=== PATIENT | female | born 1990 | race Hispanic/Latino ===

== ENCOUNTER 2019-04-20 22:14 | Day surgery (SDC) | payer OTHER ==
[2019-04-20 22:56] VITALS: BMI 29.1
[2019-04-20 23:03] VITALS: BP 109/75; TEMP 98.5
[2019-04-20 23:26] LABS: Amnisure Test No Membranes Rupture (No Rupture)
[2019-04-20 23:27] LABS: Amnisure Internal Control QC ACCEPTABLE (ACCEPTABLE)
[2019-04-20] MEDS ORDERED: hydrALAZINE 20 MG/ML VIAL SLOW IVP PRN (23:35)
--- NOTE | 2019-04-20 23:52 | PDOC.FPROB ---
FMR OB H&P: HPI - History of Present Illness Chief Complaint: LOF Indentification: 28 yo @ 30.3 weeks by LMP c/w 18wk sono History of Present Illness: 28yo @ 30.3 by LMP c/w 18wk sono presents for leakage of fluid. Pt states that at approximately 1730 this afternoon she had leakage of fluid with sneezing x2. After sneezing she noticed her underwear were wet. Changed, and has since been completely dry. Unsure color of fluid as wearing dark-colored underwear. No vaginal bleeding, changes in vaginal discharge. No recent intercourse, no new partners since , no history of STD's, no dysuria, frequency, urgency, no vaginal itching or burning. Endorses lower back pain rated 3/10, but no regular contractions. Endorses good movement. 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 - Surgical History Sx History: Primary 2016 - Social History Social History: No smoking, alcohol or illicit drug use - Family History Family History: Negative FMR OB H&P: Medications - Current Home Medications: Medication Instructions Recorded Confirmed Type Pnv No.95/Ferrous Fum/Folic AC 1 tab PO DAILY 04/20/19 04/20/19 History [ Vitamin Tablet] Allergies/Adverse Reactions: Allergies Allergy/AdvReac Type Severity Reaction Status Date / Time No Known Allergies Allergy Verified 04/20/19 22:51 FMR OB H&P: ROS - Review of Systems General: denies: fever/chills, weight/appetite/sleep changes, night sweats, recent trauma Eyes: denies: vision changes, double vision ENT: denies: nasal congestion, rhinorrhea, sore throat Cardiovascular: denies: chest pain, palpitation, edema Respiratory: denies: cough, congestion, shortness of breath Gastrointestinal: denies: abdominal pain, indigestion, bloating, cramping, nausea, vomiting, diarrhea, constipation Genitourinary (Female): reports: incontinence, other (leakage of fluid). denies : dysuria, hematuria, polyuria, hesitancy, vaginal discharge, vaginal pain, vaginal bleeding, contractions Musculoskeletal: reports: pain (back pain with ) Neurologic: denies: numbness, syncope Integumentary: denies: rash FMR OB H&P: Vital Signs - Maternal Vital signs: Vital Signs - First Documented Temp Pulse Resp BP Pulse Ox 98.5 F 78 16 109/75 98 04/20/19 22:50 04/20/19 22:50 04/20/19 22:50 04/20/19 22:50 04/20/19 22:50 - Heart Tones Baseline: 140 Variability: moderate Acceleration: present Deceleration: absent [place] contractions every: none FMR OB H&P: Physical Exam - Physical Exam General: NAD, awake, alert and oriented HEENT: PERRLA, EOMI, MMM, grossly normal vision, grossly normal hearing Neck: supple, trachea midline Heart: RRR, normal S1/S2, no murmurs/rubs/gallops, pulses present, no edema General: CTAB, no respiratory distress, good air movement, no rales/rhonchi, no wheezing Abdomen: soft, gravid, non-tender, bowel sound present Neurological: no focal deficit Skin: no rash - Pelvic Exam Vulva: normal hair distribution, no lesions, no discharge, no blood Deviation from normal: minimal thick, white discharge from cervix, no foul smell SVE: Cervical visualized, no pooling of fluid, no LOF with cough. FMR OB H&P: Results - Labs Lab results: Laboratory Results - last 24 hr 04/20/19 23:08 Amnio Swab Test No Membranes Rupture FMR OB H&P: A/P - Problem List (1) Third trimester at less than 36 weeks Status: Acute Code(s): Z34.93 - ENCNTR FOR SUPRVSN OF NORMAL PREG, UNSP, THIRD TRIMESTER Disposition: 28yo @ 30.3 by LMP c/w 18wk sono presents for leakage of fluid. #Leakage of fluid, likely incontinence - @ 30.3 by LMP c/w 18wk sono. Uncomplicated thus far. - 2 episodes with sneezing, since resolved with no continuation of leakage of fluid - Spec exam visualized cervix with no pooling of fluid and no LOF with coughing - Small amount of thick, white discharge, VP3 obtained - will notify of results - Amnisure negative - monitoring for 20 min - Reactive with accels, no deccels, moderate variability, no contractions, baseline 140 - History and exam c/w incontinence. Will obtain UA to assess for UTI, will treat if necessary - Pt safe for discharge. Findings and plan discussed with pt at bedside. Return precautions including continued loss of fluid, vaginal discharge or bleeding, or no movement given. Pt voiced agreement and understanding of discharge plan. Will f/u with PNC as previously scheduled for routine care. Discussion: Date/Time: 04/20/19 2350 This H&P was discussed with [Tonya] who agree with the above documentation and plan. Addendum - Attending - Attending Attestation Date/Time: 04/23/19 1000 I personally evaluated the patient and discussed the management with Dr. Gar I agree with the History, Examination, Assessment and Plan documented above with any addition or exceptions noted below. vital signs 109/75 16 78 98.5 98% I personally discussed the finding and results with the pt and. She was given labor precautions
[2019-04-21 00:14] LABS: Bilirubin Negative (Negative); Blood, Urine Negative (Negative); Clarity Clear (Clear); Glucose, Urine (Dipstick) Normal (Negative); Leukocyte Negative Leu/uL (Negative); Nitrite Negative (Negative); Protein, Urine (Dipstick) Negative (Neg-Trace); RBC/HPF 0-3 HPF (0-3); Squamous Epithelial 0-3 HPF (0-3); Urobilinogen Normal mg/dL (Less than 2); WBC/HPF 0-3 HPF (0-3)
[2019-04-21 00:18] LABS: Bacteria/HPF 1+ HPF (None Seen)
[2019-04-21 00:19] LABS: Urine Culture Reflex Yes Yes
[2019-04-21] MEDS ORDERED: FLU VACC QS2019-20(6MOS UP)/PF 60 MCG/0.5 ML SYRINGE IM ONE (09:00)
== END 2019-04-21 01:00 | disposition home or self-care (01) ==
LOC: L&D/OP 22:14
PROVIDERS: ATTEND Obstetrics & Gynecology
DX: O99.89 Other specified diseases and conditions complicating pregnancy, childbirth and the puerperium (principal); N89.8 Other specified noninflammatory disorders of vagina; Z3A.30 30 weeks gestation of pregnancy
CPT/HCPCS: 81001; 84112; 87086; 87480; 87510; 87660; 99285

== ENCOUNTER 2019-06-17 17:12 | Day surgery (SDC) | payer OTHER ==
[2019-06-17 17:53] VITALS: BMI 32.3
[2019-06-17] MEDS ORDERED: hydrALAZINE 20 MG/ML VIAL SLOW IVP PRN (18:06)
--- NOTE | 2019-06-17 18:22 | PDOC.FPROB ---
FMR OB H&P: HPI - History of Present Illness Chief Complaint: leakage of fluid Indentification: 28 yo @ 38.5 weeks by LMP c/w 18wk almao (LAVELL 06/26/2019 ) History of Present Illness: Jennifer presents for leakage of fluid. She states that at 11:30 this AM she stood up and felt fluid, she went to the bathroom and her underwear and pants were wet. She is unsure color of fluid as wearing dark-colored underwear. She denies any further leakage of fluid today. She notes that 2 days ago she had a similar experience, but it was a much smaller amount. She has a history of a primary emergent for prolapsed cord with a vertical skin incision and now has a hypertrophic scar. She states that the incision on her uterus is also vertical, however in our records it is unclear. She denies recent intercourse, no new partners since , no history of STD's, no dysuria, frequency, urgency, no vaginal itching or burning, denies contractions, vaginal bleeding or decreased movement. Primary Care Physician: YASMANI Byrne FMR OB H&P: Current - Care : 2 Para: 1001 Gestational age: 38.5 Due date: 06/26/2019 Dating Criteria: LMP c/w 18wk sono - OB Labs Blood type: O RH: positive Antibody Screen: negative HIV: negative RPR: negative HepBsAg: negative Rubella: immune Quad screen: negative Urine drug screen: not done Gonorrhea: negative Chlamydia: negative GBS: unknown FMR OB H&P: History - Past Medical History PMH: None - OB History OB History: H/o stat primary 2/2 cord prolapse. 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 - Family History Family History: Negative FMR OB H&P: Medications - Current Home Medications: Medication Instructions Recorded Confirmed Type Pnv No.95/Ferrous Fum/Folic AC 1 tab PO DAILY 04/20/19 06/17/19 History [ Vitamin Tablet] Allergies/Adverse Reactions: Allergies Allergy/AdvReac Type Severity Reaction Status Date / Time No Known Allergies Allergy Verified 06/17/19 17:52 FMR OB H&P: ROS - Review of Systems General: denies: fever/chills, weight/appetite/sleep changes, night sweats, fatigue Eyes: denies: eye pain, vision changes ENT: denies: nasal congestion, rhinorrhea, frequent nose bleed, sinus pain/ pressure, sore throat Cardiovascular: denies: chest pain, palpitation, edema Gastrointestinal: denies: abdominal pain, cramping, nausea, vomiting, diarrhea, constipation Genitourinary (Female): denies: dysuria, hematuria, polyuria Musculoskeletal: denies: pain, stiffness, tenderness Neurologic: denies: numbness, syncope, seizures, weakness Integumentary: denies: itching, rash FMR OB H&P: Vital Signs - Maternal Vital signs: VSS, WNL. BP <140/90, afebrile - Heart Tones Baseline: 140 Variability: moderate Acceleration: present Deceleration: absent Category: category 1 [place] contractions every: none FMR OB H&P: Physical Exam - Physical Exam General: NAD, awake, alert and oriented HEENT: normocephalic and atraumatic, PERRLA, EOMI, MMM, conjunctiva clear, grossly normal vision, grossly normal hearing Neck: supple, FROM Breast: symmetric Heart: RRR, normal S1/S2, no murmurs/rubs/gallops General: CTAB, no respiratory distress, good air movement Abdomen: soft, gravid, non-tender Musculoskeletal: normal gait and station, pulses present Neurological: cranial nerves II through XII intact Skin: no rash, good tugor Lymphatic: no unusual bruising or bleeding, no purpura, no petechia Psychiatric: intact recent and remote memory, good judgement and insight - Pelvic Exam Cervix: no masses, no lesions, no blood FMR OB H&P: Results - Labs Lab results: Laboratory Tests 06/17/19 18:28 Amnio Swab Test No Membranes Rupture FMR OB H&P: A/P - Problem List (1) Term Status: Acute Code(s): Z34.90 - ENCNTR FOR SUPRVSN OF NORMAL , UNSP, UNSP TRIMESTER Disposition: Stable, D/c home with labor precautions. Scheduled repeat 06/20/2019. Discussion: Date/Time: 06/17/19 182 Term , complains of leakage of fluid - @ 38.5 by LMP c/w 18wk sono. Uncomplicated thus far. - Spec exam visualized cervix with no pooling of fluid and no LOF with coughing - Small amount of thick, white discharge, VP3 obtained - will notify of results - Amnisure negative - monitoring for 20 min - Reactive with accels, no deccels, moderate variability, no contractions, baseline 140 - History and exam c/w incontinence vs discharge. - Pt safe for discharge. Findings and plan discussed with pt at bedside. Return precautions including continued loss of fluid, vaginal discharge or bleeding, or no movement given. Pt voiced agreement and understanding of discharge plan. Will f/u with PNC as previously scheduled for routine care. This H&P was discussed with Drs. Ornelas and Ghassan who agree with the above documentation and plan. Signature: -Jose PGY1 Addendum - Attending - Attending Attestation Date/Time: 06/18/19 8950 I personally evaluated the patient and discussed the management with Drs. Oconnor and Gayathri. I agree with the History, Examination, Assessment and Plan documented above.
[2019-06-17 18:46] LABS: Amnisure Internal Control QC ACCEPTABLE (ACCEPTABLE); Amnisure Test No Membranes Rupture (No Rupture)
[2019-06-18] MEDS ORDERED: FLU VACC QS2019-20(6MOS UP)/PF 60 MCG/0.5 ML SYRINGE IM ONE (09:00)
== END 2019-06-17 19:20 | disposition home or self-care (01) ==
LOC: L&D/OP 17:12
PROVIDERS: ATTEND Obstetrics & Gynecology
DX: O99.89 Other specified diseases and conditions complicating pregnancy, childbirth and the puerperium (principal); N89.8 Other specified noninflammatory disorders of vagina; O34.219 Maternal care for unspecified type scar from previous cesarean delivery; Z3A.38 38 weeks gestation of pregnancy
CPT/HCPCS: 84112; 87480; 87510; 87660; 99283

== ENCOUNTER 2019-06-20 11:17 | Inpatient (IN) | payer MEDICAID, OTHER, SELFPAY ==
[~2019-06-20 11:17] MED LIST: Acetaminophen 500 MG TAB PO PRN; Bicitra 30 ML UDCUP PO SCH; Butorphanol Tartrate 1 MG/ML VIAL SLOW IVP PRN; Docusate 100 MG CAP PO PRN; Ondansetron PF 4 MG/2 ML Vial IVP PRN; Promethazine HCl 25 MG/ML VIAL IM PRN; hydrALAZINE 20 MG/ML VIAL SLOW IVP PRN
[2019-06-20] MEDS ORDERED: CEFAZOLIN 2 GM in Premix Bag 1 BAG IVPB SCH (11:30)
[2019-06-20] MEDS ORDERED: Oxytocin 10 UNITS/ML VIAL ONE ×2 (11:33→13:16)
[2019-06-20] MEDS ORDERED: ePHEDrine/0.9% NaCl/PF SYRINGE 50 mg/10 ml ONE (11:33)
[2019-06-20] MEDS ORDERED: Ondansetron PF 4 MG/2 ML Vial ONE (11:33)
[2019-06-20 11:50] VITALS: BMI 33.8
[2019-06-20 11:56] LABS: Hemoglobin 13.1 g/dL (12.0-16.0); Mean Corpuscular HGB CONC 35.6 g/dL (32.0-36.0); Mean Corpuscular Hemoglobin 32.2 pg (27.0-31.0); Mean Corpuscular Volume 90.5 fL (78.0-98.0); Mean Platelet Volume 7.6 fL (7.4-10.4); Platelet Count 291 thou/uL (130-400); RBC Distribution Width 12.9 % (11.5-14.5); Red Blood Cell (RBC) Count 4.06 mill/uL (4.20-5.40); White Blood Cell (WBC) Count 9.1 thou/uL (4.8-10.8)
--- NOTE | 2019-06-20 12:00 | PDOC.FPROB ---
FMR OB H&P: HPI - History of Present Illness Chief Complaint: Repeat CS History of Present Illness: 28 yo @ 39.2 presents for repeat CS with scare revision. Pt had primary vertical skin and LT hysterotomy for stat section initial 2/2 cord prolapse. Reports pos movement. No CP, SOB, swelling. No vag bleeding DC or LOF. Primary Care Physician: Fide FMR OB H&P: Current - Care : 2 Para: 1001 Gestational age: 39.1 Due date: 06/26/2019 Dating Criteria: LMP 18 week sono Total weight gain: 40 LBS Course/Complications: None - OB Labs Blood type: O RH: positive Antibody Screen: negative HIV: negative RPR: negative HepBsAg: negative Rubella: immune Quad screen: unknown Urine drug screen: not done Gonorrhea: negative Chlamydia: negative 3 hour GTT: 73,150,101 FMR OB H&P: History - Past Medical History PMH: None - OB History OB History: Primary CS for cord prolapse - Surgical History Sx History: 1 prior CS - Social History Social History: No alcohol tobacco or drug use - Family History Family History: None FMR OB H&P: Medications - Current Home Medications: Medication Instructions Recorded Confirmed Type Pnv No.95/Ferrous Fum/Folic AC 1 tab PO DAILY 04/20/19 06/20/19 History [ Vitamin Tablet] guaiFENesin/Dextromethorphan 118 ml PO ONE PRN 06/20/19 06/20/19 History [Adult Robitussin Peak Cold Liquid] Allergies/Adverse Reactions: Allergies Allergy/AdvReac Type Severity Reaction Status Date / Time No Known Allergies Allergy Verified 06/17/19 17:52 FMR OB H&P: ROS - Review of Systems General: denies: fever/chills, night sweats Eyes: denies: vision changes ENT: reports: nasal congestion. denies: trouble with swallowing Cardiovascular: denies: chest pain Respiratory: reports: cough. denies: congestion, shortness of breath, exercise intolerance Gastrointestinal: denies: abdominal pain, bloating, cramping, nausea, vomiting, diarrhea, constipation Genitourinary (Female): denies: dysuria Neurologic: denies: numbness, weakness Integumentary: denies: itching, rash FMR OB H&P: Vital Signs - Heart Tones Baseline: 140 Variability: moderate Acceleration: present Deceleration: absent Category: category 1 [place] contractions every: None FMR OB H&P: Physical Exam - Physical Exam General: NAD, awake, alert and oriented HEENT: normocephalic and atraumatic, PERRLA, EOMI, MMM Neck: trachea midline Heart: RRR, normal S1/S2, no edema General: CTAB, no respiratory distress, good air movement, no rales/rhonchi, no wheezing Abdomen: soft, gravid, non-tender Musculoskeletal: FROM in all four extremities Neurological: no focal deficit Skin: no rash Deviation from normal: hypertrophic midline scar from inferior margin of umbilicus to pubic symph Lymphatic: no unusual bruising or bleeding Psychiatric: good judgement and insight, normal mood and affect - Pelvic Exam Estimated Weight: 7 lbs FMR OB H&P: Results - Labs Lab results: Laboratory Results - last 24 hr 06/20/19 11:47 WBC 9.1 RBC 4.06 L Hgb 13.1 Hct 36.8 MCV 90.5 MCH 32.2 H MCHC 35.6 RDW 12.9 Plt Count 291 MPV 7.6 FMR OB H&P: A/P - Problem List (1) Encounter for maternal care for scar from repeat delivery Current Visit: Yes Status: Acute Code(s): O34.219 - MATERNAL CARE FOR UNSP TYPE SCAR FROM PREVIOUS DEL (2) Term Current Visit: No Status: Acute Code(s): Z34.90 - ENCNTR FOR SUPRVSN OF NORMAL , UNSP, UNSP TRIMESTER Discussion: Date/Time: 06/20/19 9444 This H&P was discussed with Dr. Melton who agree with the above documentation and plan. 28 yo @ 39.1 presents for repeat section. 1) Term - plan for repeat CS - risks benefits alternatives explained - labs pending 2) Hypertrophic scar: - operative scar revision - consider abx post op Dispo: stable, admitted for repeat LTCS with vertical skin incision and scar revision. To OR for delivery. Addendum - Attending - Attending Attestation Date/Time: 06/20/19 1032 I personally evaluated the patient and discussed the management with Dr. Byrne I agree with the History, Examination, Assessment and Plan documented above with any addition or exceptions noted below. rLTCS with incision revision. R/B/A discussed with patient. elected to proceed.
[2019-06-20] MEDS: Lactated Ringer's 1,000 ML IV SCH ×3 (12:04→20:01)
[2019-06-20] MEDS ORDERED: Fentanyl 100 MCG/2 ML VIAL ONE (12:15)
[2019-06-20] MEDS ORDERED: MORPHINE 5 MG/10 ML PF VIAL ONE (12:15)
[2019-06-20] MEDS ORDERED: Ketorolac Tromethamine 30 MG/ML VIAL ONE (12:34)
[2019-06-20 12:45] LABS: HBSAg Index 0.33 S/CO (0-0.99); Hep B Surf Ag Non-Reactive S/CO (NonReactive); Syphilis Antibody Nonreactive (Nonreactive); Syphilis Antibody Index 0.04 S/CO (<1.00 Non-Reactive)
[2019-06-20] MEDS ORDERED: diphenhydrAMINE 50 MG/ML VIAL IVP PRN (13:55)
[2019-06-20] MEDS ORDERED: L&D-Morphine 4 MG/ML VIAL SLOW IVP PRN (13:55)
[2019-06-20] MEDS ORDERED: Promethazine HCl 25 MG SUPP PR PRN (13:55)
[2019-06-20] MEDS ORDERED: Meperidine HCl/PF 25 MG/ML VIAL SLOW IVP PRN (13:55)
[2019-06-20] MEDS ORDERED: Ondansetron PF 4 MG/2 ML Vial IVP PRN ×2 (13:55→16:02)
[2019-06-20] MEDS ORDERED: Promethazine HCl 25 MG/ML VIAL IM PRN (13:55)
[2019-06-20] MEDS ORDERED: HYDROmorphone 2 MG/ML VIAL SLOW IVP PRN (13:55)
[2019-06-20] MEDS ORDERED: Ondansetron HCl/PF 4 MG/2 ML Vial IVP PRN (13:55)
[2019-06-20] MEDS ORDERED: Naloxone HCl 0.4 mg/ml Vial IV PRN (13:55)
[2019-06-20] MEDS ORDERED: Naloxone HCl 0.4 mg/ml Vial IVP PRN ×2 (13:55)
[2019-06-20] MEDS ORDERED: Communication Order-Pharmacy FS SCH (14:00)
[2019-06-20] MEDS ORDERED: Lanolin Ointment 7 GM TUBE TOP PRN (16:02)
[2019-06-20] MEDS ORDERED: Milk Of Magnesia 30 ML UDCUP PO PRN (16:02)
[2019-06-20] MEDS ORDERED: hydrALAZINE 20 MG/ML VIAL SLOW IVP PRN (16:02)
[2019-06-20] MEDS ORDERED: Acetaminophen 325 MG TAB PO PRN (16:02)
[2019-06-20] MEDS ORDERED: Docusate 100 MG CAP PO PRN (16:02)
--- NOTE | 2019-06-20 17:29 | OP ---
DATE OF PROCEDURE: 06/20/2019 LOCATION: [place], [place]. REPORT TYPE: procedure note. RESIDENT SURGEON: Cullen Byrne DO NATIONAL ACCOUNT MANAGER SURGEON: Sari Granados MD PROCEDURES PROCEDURE: Repeat low-transverse section with vertical skin incision and hypertrophic scar revision. PREOPERATIVE DIAGNOSES: 1. Term intrauterine . 2. Previous with vertical skin incision, a low transverse hysterotomy. 3. Hypertrophic scar. POSTOPERATIVE DIAGNOSIS: 1. Term intrauterine delivered. 2. Previous with vertical skin incision, a low transverse hysterotomy. 3. Hypertrophic scar, revised. ANESTHESIA: Spinal. INDICATIONS: The patient is a 28-year-old, G2, P1-0-0-1 now P2-0-0-2 female at 39 and 1 weeks dated by LMP consistent with 18.1 sono, who presents for repeat scheduled section with hypertrophic scar revision. DESCRIPTION OF PROCEDURE: After risks, benefits, and alternatives were explained to the patient, she gave informed consent. Preoperative antibiotics included Ancef 2 g IV. Additionally, the patient used Hibiclens bath prior to arrival. The patient was taken to the operating room and spinal anesthesia was initiated. She was placed in the supine position with a left tilt and prepped and draped in the usual sterile fashion. A vertical skin incision was made from inferior to the umbilicus to the superior aspect of the mons pubis in elliptical shape, encompassing the prior hypertrophic scar/keloid and this tissue was then removed. This incision was then carried down to the level of fascia, which was made using a Bovie cauterization and eventually sharply nicked. The fascial cut was extended cephalo-caudad with Painter scissors. The underlying peritoneum was dissected free. Peritoneum was entered bluntly and retracted manually. Nathan O was then placed intra-abdominally. A low transverse score was made with a scalpel and the uterus was entered in the midline with the scalpel. Clear fluid was seen. Hysterotomy was extended manually. was noted to be vertex and easily delivered by fundal pressure. The mouth and nares were bulb suctioned. The cord was clamped and cut and grossly normal male was handed to the waiting nurse. Cord blood was obtained. The placenta delivered spontaneously and found to be intact three-vessel cord. The endometrium was then curetted with a dry lap. Following this, the hysterotomy was closed with a running locking #1 Monocryl suture followed by a running nonlocking #1 Monocryl imbricating suture. Subsequently, bleeders were cauterized and three [id number] sutures were placed and hemostasis was noted. Subsequently, the Nathan-O retractor was removed and again the hysterotomy was noted to be hemostatisc. The abdomen was irrigated and suctioned free of clots. The uterus was internalized and the hysterotomy was again noted to be hemostatic. The fascia was closed with a running nonlocking 0 PDS looped suture. Following this, subcutaneous tissue was irrigated and bleeders were cauterized with Bovie cauterization. Subsequently, the underlying subcutaneous tissue was approximated with 2-0 plain gut suture in a simple interrupted fashion with approximately three layers from deep to superficial. A small dog-ear section of skin was then removed and the skin was then approximated in the area with 2-0 plain gut suture. Subsequently, the skin was approximated with bart and a wound VAC was placed over the wound. All counts were correct. The patient tolerated the procedure well and was taken to recovery room in stable condition. QUANTITATIVE BLOOD LOSS: 740 mL. COMPLICATIONS: None. SPECIMENS: Cord blood sent to lab for blood type. FINDINGS: Grossly normal male infant with Apgars of 9 and 9. Time of delivery was 12:50. Grossly normal placenta with three vessel cord discarded. Drains Carmichael to gravity draining clear urine. ATTENDING ADDENDUM I was present for the entire procedure and agree with the above documentation. Job ID: [id number] [facility]
--- NOTE | 2019-06-20 18:05 | PDOC.EVN ---
Event Note - Event Note Event Note: 28yo ->2 delivered TAGA M via RLTCS with vertical skin incision, seen in recovery. Pt doing well, pain is minimal. Nursing staff reports minimal vaginal bleeding. UOP has been about 50ml/hr in recovery. Pt is gaining feeling in her LE. QBL 720 at delivery, 75 in recovery. VS 116/66, P84 Gen: AOx3, NAD, bonding with baby : yellow clear UOP Lungs: no respiratory distress Abd: wound vac in place, appropriately tender, fundus at umbilicus Ext: sensation intact b/ LE Continue routine PP care.
[2019-06-20] MEDS: Ketorolac Tromethamine 30 MG/ML VIAL IVP SCH (20:00)
[2019-06-20] MEDS: Ferrous Sulfate 325 MG TAB PO SCH (21:21)
[2019-06-21] MEDS: Ketorolac Tromethamine 30 MG/ML VIAL IVP SCH ×3 (02:25→13:24)
[2019-06-21 05:55] LABS: Hemoglobin 11.5 g/dL (12.0-16.0); Mean Corpuscular HGB CONC 34.7 g/dL (32.0-36.0); Mean Corpuscular Hemoglobin 31.6 pg (27.0-31.0); Mean Platelet Volume 7.3 fL (7.4-10.4); Platelet Count 265 thou/uL (130-400); RBC Distribution Width 12.7 % (11.5-14.5); Red Blood Cell (RBC) Count 3.64 mill/uL (4.20-5.40); White Blood Cell (WBC) Count 10.3 thou/uL (4.8-10.8)
[2019-06-21] MEDS: Polyethylene Glycol 3350 17 GM Packet PO SCH (08:44)
[2019-06-21] MEDS: Prenatal Vitamin 1 TAB PO SCH (08:44)
[2019-06-21] MEDS: Ferrous Sulfate 325 MG TAB PO SCH (08:49)
--- NOTE | 2019-06-21 08:49 | PDOC.PP ---
Post Progress Note Post Day #: 1 Subjective: 28 yo G2 now P2 eat LTCS with vertical skin and scar revision. Carmichael out, normal urination since removal, pain well controlled, ambulating and tolerating PO. PO intake tolerated: yes Flatus: yes Ambulation: yes Vital Signs (12 hours) Temp Pulse Resp BP Pulse Ox 06/21/19 08:09 98.2 F 101 H 20 110/64 96 06/21/19 05:20 98.5 F 95 18 105/65 06/21/19 00:11 98.4 F 89 18 115/63 Weight Weight 81.193 kg - Physical Examination General: NAD Cardiovascular: no m/r/g, RRR Respiratory: clear to auscultation bilaterally, non-labored breathing Abdominal: + bowel sounds, no distention, appropriately TTP Skin: no rash (Wound vac in place, small amount of blood inferior aspect of wound vac, otherwise no surrounding erythema or edema.) Neurological: no gross focal deficits Psychiatric: normal affect Result Diagrams: 06/21/19 05:44 Additional Labs: Post Labs Blood Type O POSITIVE 06/20/19 12:19 Hep Bs Antigen Non-Reactive S/CO (NonReactive) 06/20/19 11:47 (1) Encounter for maternal care for scar from repeat delivery Code(s): O34.219 - MATERNAL CARE FOR UNSP TYPE SCAR FROM PREVIOUS DEL Status: Acute (2) Term Code(s): Z34.90 - ENCNTR FOR SUPRVSN OF NORMAL , UNSP, UNSP TRIMESTER Status: Acute - Assessment/Plan 1) s/p RLTCS with scar revision - all pp milestones met - cont to monitor one more day possible dc to home tomorrow - wound vac to remain 7 days, staple removal 10 days PP 2) Scar revision - wound vac in place see above - consider OP kenelog intralesional to prevent reformation of keloid at 1 month pp Dispo: stable, monitor overnight and possible dc to home tomorrow. Addendum - Attending - Attending Attestation Date/Time: 06/21/19 0154 I personally evaluated the patient and discussed the management with Dr. Byrne I agree with the History, Examination, Assessment and Plan documented above with any addition or exceptions noted below. Doing well today. Small amount of blood in wound vac. Likely home tomorrow.
[2019-06-21] MEDS ORDERED: Adacel (T-DAP) 0.5 ML SYRINGE IM ONE (09:00)
[2019-06-21] MEDS: Simethicone Chewable 80 MG TAB PO PRN ×2 (17:33→19:42)
[2019-06-21] MEDS: Ibuprofen 800 MG TAB PO SCH (19:42)
[2019-06-22] MEDS ORDERED: HYDROcodone/Acetaminophen 5/325 mg Tablet PO SCH (00:30)
[2019-06-22] MEDS: Ferrous Sulfate 325 MG TAB PO SCH ×2 (00:48→09:27)
[2019-06-22] MEDS: Ibuprofen 800 MG TAB PO SCH (05:41)
--- NOTE | 2019-06-22 07:27 | PDOC.PP ---
Post Progress Note Post Day #: 2 Subjective: 28 yo G2 now P2 s/p rLTCS pp day 2. Pt reports she is doing well. Some mild incisional pain controlled with ibuprofen. Otherwise no concerns. PO intake tolerated: yes Flatus: yes Ambulation: yes Vital Signs (12 hours) Temp Pulse Resp BP 06/22/19 05:40 98.2 F 80 16 109/69 06/22/19 00:05 98.6 F 74 16 104/72 Weight Weight 81.193 kg - Physical Examination General: NAD Cardiovascular: no m/r/g, RRR Respiratory: clear to auscultation bilaterally, non-labored breathing Abdominal: + bowel sounds, appropriately TTP Extremities: negative homans (B) Skin: no rash (Wound vac in place without surrounding erythema or edema.) Neurological: no gross focal deficits Psychiatric: normal affect Result Diagrams: 06/21/19 05:44 Additional Labs: Post Labs Blood Type O POSITIVE 06/20/19 12:19 Hep Bs Antigen Non-Reactive S/CO (NonReactive) 06/20/19 11:47 (1) Encounter for maternal care for scar from repeat delivery Code(s): O34.219 - MATERNAL CARE FOR UNSP TYPE SCAR FROM PREVIOUS DEL Status: Acute (2) Term Code(s): Z34.90 - ENCNTR FOR SUPRVSN OF NORMAL , UNSP, UNSP TRIMESTER Status: Acute - Assessment/Plan 1) s/p RLTCS with scar revision - all pp milestones met - cont to monitor one more day possible dc to home tomorrow - wound vac to remain 7 days, staple removal 10 days PP - add miralax prn to bowel regimen, pt reports some constipation although had BM yesterday 2) Scar revision - wound vac in place see above - consider OP kenelog intralesional to prevent reformation of keloid at 1 month pp - mild bleeding over inferior aspect of wound vac, appears dry and stable from yesterdays exam. - ok for dc after re-eval this afternoon Dispo: stable, re-eval wound this afternoon and likely DC this afternoon. Addendum - Attending - Attending Attestation Date/Time: 06/22/19 4620 I personally evaluated the patient and discussed the management with Dr. Byrne I agree with the History, Examination, Assessment and Plan documented above with any addition or exceptions noted below. D/C home f/u on next tuesday for wound vac and staple removal.
[2019-06-22] MEDS: Polyethylene Glycol 3350 17 GM Packet PO SCH (09:27)
[2019-06-22] MEDS: Prenatal Vitamin 1 TAB PO SCH (09:27)
[2019-06-22 12:38] VITALS: BP 113/61; TEMP 98.4
== END 2019-06-22 13:00 | disposition home or self-care (01) | DRG 788 ==
LOC: L&D-LIB 11:17 → L&D 14:37 → 3SW 18:15
PROVIDERS: ADMIT Family Medicine; ATTEND Family Medicine
PROC: 10D00Z1 Extraction of Products of Conception, Low, Open Approach (ICD-10-PCS; principal; 2019-06-20)
DX: O34.211 Maternal care for low transverse scar from previous cesarean delivery (principal); Z3A.39 39 weeks gestation of pregnancy; Z37.0 Single live birth; L91.0 Hypertrophic scar; K59.00 Constipation, unspecified; O99.62 Diseases of the digestive system complicating childbirth
CPT/HCPCS: 36415; 85027; 86780; 86850; 86900; 86901; 87340; J0690; J1885; J2274; J2405; J2590; J3010